=== PATIENT | male | born 1965 | race Caucasian/White ===

== ENCOUNTER 2022-06-11 16:41 | Inpatient (IN) | payer OTHER ==
[~2022-06-11] VITALS: Ht 170.2 cm; Wt 71.7 kg
[2022-06-11] MEDS ORDERED: MAGN400O6 PO (18:15)
[2022-06-11] MEDS ORDERED: TELM40TA2 PO (18:15)
[2022-06-11] MEDS ORDERED: GABA600T12 PO (18:15)
[2022-06-11] MEDS ORDERED: OMEP20CA15 PO (18:15)
[2022-06-11] MEDS ORDERED: TRAZ-257 PO (18:15)
[2022-06-11] MEDS ORDERED: PROP10TA10 PO (18:15)
[2022-06-11] MEDS ORDERED: ACET650T7 PO (18:15)
[2022-06-11] MEDS ORDERED: FOLI0.4T6 PO (18:15)
[2022-06-11] MEDS ORDERED: PIPERACILLIN /TAZOBACTAM 3.375 G VIAL IV ONE (18:25)
[2022-06-11] MEDS ORDERED: VANCOMYCIN 1 GM VIAL ONE (18:25)
[2022-06-11] MEDS ORDERED: VANCOMYCIN 1 GM in IV D5W 250 ML IV ONE (18:30)
[2022-06-11] MEDS ORDERED: PIPERACILLIN /TAZOBACTAM 3.375 G in IV D5W 50 ML IV ONE (18:30)
[2022-06-11 19:17] LABS: ALBUMIN 3.1 g/dL (3.4-5.0); BILIRUBIN,DIRECT 0.1 mg/dL (0.0-0.2); BILIRUBIN,TOTAL 0.3 mg/dL (0.2-1.0); CALCIUM, SERUM 8.9 mg/dL (8.5-10.1); CREATININE 1.1 mg/dL (0.6-1.3); POTASSIUM 3.8 mmol/L (3.5-5.1); TOTAL PROTEIN, SERUM 7.5 g/dL (6.4-8.2)
--- NOTE | 2022-06-11 19:22 | NUR ---
IKER, FROM FACILITY SN[facility] FOR AN EVAL OF SACRAL ULCER , NOTED WITH EXCRETIIONS
--- NOTE | 2022-06-11 19:48 | NUR ---
DR ROGER SOFIA PER DR BERNAL.
[2022-06-11 19:54] LABS: BASOPHILS % (AUTO) 0.1 % (0.0-2.0); EOSINOPHILS % (AUTO) 1.6 % (0.0-6.0); HEMATOCRIT 32 % (39-51); HEMOGLOBIN 10.5 g/dL (13.5-17.5); LYMPHOCYTES # (AUTO) 1.3 K/uL (0.8-4.8); LYMPHOCYTES % (AUTO) 14.9 % (20.0-44.0); MEAN CORPUSCULAR HGB CONC 33 g/dl (31.0-36.0); MEAN CORPUSCULAR VOLUME 84 fL (80-96); MONOCYTES # (AUTO) 0.8 K/uL (0.1-1.30); MONOCYTES % (AUTO) 8.8 % (2.0-12.0); NEUTROPHILS # (AUTO) 6.4 K/uL (1.8-8.9); NEUTROPHILS % (AUTO) 74.6 % (43.0-81.0); PLATELET COUNT (AUTO) 308 K/uL (150-450); RED BLOOD CELL COUNT(AUTO) 3.79 MIL/uL (4.5-6.0); WHITE BLOOD COUNT (AUTO) 8.6 K/uL (4.3-11.0)
[2022-06-11 20:03] LABS: BILIRUBIN,URINE NEGATIVE (NEGATIVE); COLOR,URINE YELLOW (YELLOW); LEUKOCYTE ESTERASE ,URINE NEGATIVE (NEGATIVE); NITRITE, URINE NEGATIVE (NEGATIVE); PROTEIN,URINE NEGATIVE (NEGATIVE); UGLUCOSE NEGATIVE (NEGATIVE); UROBILINOGEN,URINE 0.2 EU/dL (0.2)
--- NOTE | 2022-06-11 21:54 | NUR ---
REPORT GIVEN TO TRACY MAXWELL
[2022-06-11] MEDS ORDERED: MORPHINE SULFATE INJ 2 MG/ML DISP.SYRIN IV PRN (22:00)
[2022-06-11] MEDS ORDERED: ACETAMINOPHEN 325 MG TABLET PO PRN (22:00)
[2022-06-11] MEDS ORDERED: ONDANSETRON HCL/PF 4 MG/2 ML VIAL IVP PRN (22:00)
[2022-06-11] MEDS ORDERED: Z GUARD REMEDY 4 OZ OINT TP PRN (22:00)
--- NOTE | 2022-06-11 22:13 | NUR ---
PATIENT TRANSFERRED TO [facility]
--- NOTE | 2022-06-11 22:15 | NUR ---
MS MIRROR FINISHING MACHINE OPERATOR NOTE PATIENT CAME FROM ER IN [facility]. PT AWAKE, ALERT, NON VERBAL, AND BED BOUND. PT ABLE TO FOLLOW COMMANDS. RESPIRATION EVEN AND UNLABORED. NO S/S OF PAIN OR ACUTE DISTRESS NOTED AT THIS TIME. PT ADMITTED WITH DIAGNOSTIC OF ULCER AND CELLULITIS. HAS IV ACCESS TO RIGHT AC 20G, FLUSHES WELL, IV SITE INTACT, AND PATENT. SKIN ASSESSMENT DONE, PICTURES OF WOUND TAKEN, AND FILLED TO PT'S CHART. BELONGINGS LIST CHECKED, VS STABLE. SAFETY PRECAUTIONS IN PLACE: BED LOCKED, AND LOW POSITION, SIDE RAILS UP X 3, CALL LIGHT WITHIN REACH. WILL CONTINUE TO MONITOR PT.
[2022-06-11] MEDS ORDERED: CEFEPIME 1 GM VIAL ONE (22:41)
--- NOTE | 2022-06-11 22:45 | NUR ---
MS RN NOTE SPOKE WITH MICROFILM EQUIPMENT INSPECTOR ELIO MCCANN. SINCE PATIENT IS NON-VERBAL, HOLD OFF ON PO MEDS UNTIL AM AND ORDER SWALLOW EVAL FOR AM WELL; ORDERS RECEIVED AND CARRIED OUT
[2022-06-11] MEDS ORDERED: CEFEPIME 1 GM in IV D5W 50 ML IV ONE (23:00)
[2022-06-11] MEDS: IV NS 0.9% 1,000 ML IV SCH (23:19)
--- NOTE | 2022-06-12 01:47 | NUR ---
MS RN NOTE SPOKE WITH [facility] FOR MORE INFORMATION REGARDING PATIENT, PATIENT IS NON-VERBAL AND UNABLE TO ANSWER QUESTIONNAIRE; PER EMPLOYEE CALL IN AM TO ANSWER MRI QUESTIONNAIRE AM SHIFT IS MORE FAMILIAR WITH THE PATIENT. CHARGE NURSE MADE AWARE; WILL INFORM DAY SHIFT
[2022-06-12] MEDS: PROPRANOLOL HCL 10 MG TABLET PO SCH ×3 (04:43→22:02)
[2022-06-12 06:32] LABS: BASOPHILS % (AUTO) 0.1 % (0.0-2.0); HEMATOCRIT 30 % (39-51); HEMOGLOBIN 9.9 g/dL (13.5-17.5); LYMPHOCYTES # (AUTO) 0.9 K/uL (0.8-4.8); LYMPHOCYTES % (AUTO) 14.2 % (20.0-44.0); MEAN CORPUSCULAR HGB CONC 34 g/dl (31.0-36.0); MEAN CORPUSCULAR VOLUME 84 fL (80-96); MONOCYTES # (AUTO) 0.6 K/uL (0.1-1.30); MONOCYTES % (AUTO) 8.4 % (2.0-12.0); NEUTROPHILS # (AUTO) 4.9 K/uL (1.8-8.9); NEUTROPHILS % (AUTO) 75.3 % (43.0-81.0); PLATELET COUNT (AUTO) 274 K/uL (150-450); RED BLOOD CELL COUNT(AUTO) 3.52 MIL/uL (4.5-6.0); WHITE BLOOD COUNT (AUTO) 6.5 K/uL (4.3-11.0)
[2022-06-12 06:57] LABS: ALBUMIN 2.8 g/dL (3.4-5.0); BILIRUBIN,TOTAL 0.4 mg/dL (0.2-1.0); CALCIUM, SERUM 8.9 mg/dL (8.5-10.1); MAGNESIUM 1.8 mg/dL (1.8-2.4); PHOSPHORUS 3.3 mg/dL (2.5-4.9); POTASSIUM 3.7 mmol/L (3.5-5.1); TOTAL PROTEIN, SERUM 6.9 g/dL (6.4-8.2)
--- NOTE | 2022-06-12 07:02 | NUR ---
MS RN CLOSING NOTE PATIENT LEFT RESTING IN BED. PT AWAKE, ALERT, NON VERBAL, AND BED BOUND. PT ABLE TO FOLLOW COMMANDS. RESPIRATION EVEN AND UNLABORED. NO S/S OF PAIN OR ACUTE DISTRESS NOTED AT THIS TIME. HAS IV ACCESS TO RIGHT AC 20G, FLUSHES WELL, IV SITE INTACT, AND PATENT. ALL NEEDS RENDERED. SAFETY PRECAUTIONS IN PLACE: BED LOCKED, AND LOW POSITION, SIDE RAILS UP X 3, CALL LIGHT WITHIN REACH. WILL ENDORSE PT TO AM SHIFT NURSE.
--- NOTE | 2022-06-12 07:45 | NUR ---
MS RN OPENING NOTE RECEIVED PATIENT LYING IN BED CALM. AOX1, NON-VERBAL, UNABLE TO MAKE KNEEDSS KNOWN, PATIENT IS BEDBOUND. ON ROOM AIR SATURATING WELL AT 98%. RESPIRATION EVEN AND UNLABORED. NO S/S OF PAIN OR ACUTE DISTRESS NOTED AT THIS TIME. HAS IV ACCESS TO RIGHT AC 18G, FLUSHES WELL, IV SITE INTACT, AND PATENT RUNNING 75 ML/HR OF NS. SAFETY PRECAUTIONS IN PLACE: BED LOCKED, BED LOWEST POSITION, SIDE RAILS UP X 3, CALL LIGHT AND TRAY TABLE WITHIN REACH. WILL MONITOR DURING MY SHIFT.
[2022-06-12 08:00] VITALS: BP 121/66
[2022-06-12] MEDS: FOLIC ACID 1 MG TABLET PO SCH (09:53)
[2022-06-12] MEDS: GABAPENTIN 300 MG CAPSULE PO SCH ×3 (09:53→17:12)
[2022-06-12] MEDS: LOSARTAN POTASSIUM 50 MG TABLET PO SCH (09:56)
[2022-06-12] MEDS: VANCOMYCIN 1 GM in IV D5W 250 ML IV SCH ×2 (10:00→21:55)
[2022-06-12] MEDS: PANTOPRAZOLE 40 MG TABLET.DR PO SCH (10:02)
[2022-06-12] MEDS: CEFEPIME 2 GM in IV D5W 100 ML IV SCH ×2 (10:08→21:22)
--- NOTE | 2022-06-12 10:30 | NUR ---
RN NOTES CALLED [facility] AND SPOKE TO FRANCINE DRAMATIC TEACHER REGARDING PT'S HISTORY. SHE CLAIMS THAT THE PATIENT HAS BEEN IN THE FACILITY SINCE FEBRUARY OF 2021 AND THEY DONT HAVE ANY HISTORY OF SURGERY, HEAD INJURY, MRI PROCEDURES THE PATIENT WAS HOMELESS. WILL ENDORSE TO MRI TEAM.
--- NOTE | 2022-06-12 10:53 | NUR ---
WOUND CARE CONSULT: PT PRESENTS WITH SACRAL INTACT DEEP TISSUE INJURY WITH SCARRING AND PURULENT DRAINAGE FROM SCROTUM, PRESENT ON ADMISSION. DISCUSSED WITH PMD. DEFER TO PMD FOR POSSIBLE GENERAL SURGERY CONSULT. RECOMMENDATIONS MADE FOR SKIN PROTECTION. DISCUSSED WITH NURSING STAFF. MD IN AGREEMENT WITH PLAN OF CARE.
--- NOTE | 2022-06-12 10:55 | NUR ---
RN NOTES PATIENT WAS SEEN BY SPEECH THERAPIST AND DEEMED THAT THE PATIENT CAN SWALLOW, ORAL MEDS RESUMED AND DIET WAS CHANGED TO MECHANICAL SOFT. ADVISED SUMMER ASSOCIATE TO FEED THE PATIENT.
--- NOTE | 2022-06-12 11:09 | NUR ---
RN NOTES PATIENT WAS SEEN BY WOUND NURSE JERALD, NOTED TO HAVE ABSCESS IN THE SCROTAL AREA AND DTI ON THE SACRAL AREA WITHOUT ANY OPEN WOUNDS. PATIENT WAS ALSO SEEN BY DR EMMANUEL DOMINGUEZ WELL. ORDERED 1 MG ATIVAN IV ONE TIME FOR MRI PROCEDURE.
--- NOTE | 2022-06-12 11:19 | NUR ---
RN NOTES CALLED THE [facility] TO CONFIRM REACTION TO MORPHINE, MENTIONED THEY DIDNT USE IT AND WAS ONLY GIVEN TYLENOL FOR PAIN. ENDORSED TO THE PHARMACIST, MENTIONED THEY WILL DC THE MEDICATION.
--- NOTE | 2022-06-12 12:10 | NUR ---
RN NOTES PATIENT PULLED 18G RIGHT AC IV, NO BLEEDING NOTED. WILL START A NEW ONE FOR IV ATB ORDERS.
[2022-06-12] MEDS: IV NS 0.9% 1,000 ML IV SCH (12:32)
[2022-06-12] MEDS: PROSOURCE / PROSTAT (PYXIS) 30 ML UDC GT SCH ×2 (13:44→17:12)
--- NOTE | 2022-06-12 15:54 | NUR ---
RN NOTES SPOKE TO MAGALY DIETZ REGARDING PATIENT, SHE WANTED TO VERIFY IF MD WILL SIGN OFF BECAUSE OF THE LACK OF CONCRETE HISTORY TAKING ASIDE FROM THE DRAFTER MARINE AT THE FACILITY HE WAS AT. REACHED OUT TO EMMANUEL DOMINGUEZ AND SHE MENTIONED THAT THIS HAS BEEN ORDERED AND SHE NEED NOT TO DO ANYTHING. CALLED J LUIS BACK AND BEEN INFORMED SHE SAID SHE WILL DO HER BEST TO DO IT TODAY SINCE THE MACHINE IS ACTING UP. SHE WILL ENDORSE IT TO [facility] NEXT MORNING IF NOT POSSIBLE TODAY.
[2022-06-12 16:00] VITALS: BP 125/79
--- NOTE | 2022-06-12 17:14 | NUR ---
RN NOTES DVT PUMP APPLIED AND WOUND TREATMENT PROVIDED.
--- NOTE | 2022-06-12 18:17 | NUR ---
RN NOTES PATIENT PULLED OUT HIS RAC IV ACCESS AGAIN. NO BLEEDING NOTED.
--- NOTE | 2022-06-12 18:52 | NUR ---
MS RN CLOSING NOTE PATIENT LYING IN BED, AOX1, NON-VERBAL, LOOKED CALM, UNABLE TO MAKE KNEEDS KNOWN, PATIENT IS ON ROOM AIR SATURATING WELL AT 98%. RESPIRATION EVEN AND UNLABORED. NO S/S OF PAIN OR ACUTE DISTRESS NOTED AT THIS TIME. AT 1816 PATIENT REMOVED HIS IV ACCESS TO RIGHT AC 20G LINE FOR THE 2ND TIME TODAY. CONSULTED CHARGE NURSE DIONE FOR POSSIBLE RESTRAINT BUT DO TO TIME CONSTRAINTS, TO ENDORSE TO THE ANCILLARY SPECIALIST. NO BLEEDING NOTED ON THE SITE. SAFETY PRECAUTIONS MAINTAINED: BED LOCKED, BED LOWEST POSITION, SIDE RAILS UP X 3, CALL LIGHT AND TRAY TABLE WITHIN REACH. ALL DUE MEDS GIVEN, ALL NEEDS MET. ENDORSED TO TRACY KHOURY.
--- NOTE | 2022-06-12 20:39 | NUR ---
NEW IV PERIPHERAL LINE Patient pulled out IV line per report by am Nurse. RFA G22 inserted in RFA x1 attempt. Cont IVF infusion.
[2022-06-12 20:44] VITALS: BP 111/66
[2022-06-12] MEDS: TRAZODONE 50 MG TABLET PO SCH (22:02)
[2022-06-13] MEDS: IV NS 0.9% 1,000 ML IV SCH ×2 (02:01→14:28)
[2022-06-13] MEDS: PROPRANOLOL HCL 10 MG TABLET PO SCH ×3 (05:00→21:00)
--- NOTE | 2022-06-13 05:38 | NUR ---
MEDICATION NON ADMINISTERED Inderal not given. Held per level ordered HR 52. Medication returned to pharmacy.
--- NOTE | 2022-06-13 07:07 | NUR ---
MS RN OPENING NOTES RECEIVED PATIENT AWAKE IN BED, RESTING ON ROOM AIR, NO S/S OF RESPIRATORY DISTRESS. NON VERBAL, RESPONDS TO VERBAL AND TACTILE STIMULI. IV ACCESS R FA #22 WITH NS @ 75 ML/HR RUNNING. INTACT AND PATENT, NO S/S OF INFILTRATION. SITTER AT BEDSIDE. INCONTINENT. SKIN ISSUES: SCROTAL ABSCESS AND SACRAL DTI. SAFETY MEASURES IN PLACE: BED LOCKED AND IN LOWEST POSITION, SIDE RAILS UP x3, BED ALARM ON, HOB ELEVATED, AND CALL LIGHT WITHIN REACH. WILL CONTINUE TO MONITOR.
[2022-06-13 07:15] LABS: BASOPHILS % (AUTO) 0.2 % (0.0-2.0); EOSINOPHILS % (AUTO) 2.8 % (0.0-6.0); HEMATOCRIT 31 % (39-51); HEMOGLOBIN 10.1 g/dL (13.5-17.5); LYMPHOCYTES # (AUTO) 1.3 K/uL (0.8-4.8); LYMPHOCYTES % (AUTO) 20.2 % (20.0-44.0); MEAN CORPUSCULAR HGB CONC 33 g/dl (31.0-36.0); MEAN CORPUSCULAR VOLUME 84 fL (80-96); MONOCYTES # (AUTO) 0.6 K/uL (0.1-1.30); MONOCYTES % (AUTO) 8.9 % (2.0-12.0); NEUTROPHILS # (AUTO) 4.2 K/uL (1.8-8.9); NEUTROPHILS % (AUTO) 67.9 % (43.0-81.0); PLATELET COUNT (AUTO) 298 K/uL (150-450); RED BLOOD CELL COUNT(AUTO) 3.62 MIL/uL (4.5-6.0); WHITE BLOOD COUNT (AUTO) 6.2 K/uL (4.3-11.0)
[2022-06-13 07:20] LABS: CALCIUM, SERUM 9.2 mg/dL (8.5-10.1); CREATININE 1.2 mg/dL (0.6-1.3); MAGNESIUM 1.9 mg/dL (1.8-2.4); PHOSPHORUS 3.9 mg/dL (2.5-4.9); POTASSIUM 3.9 mmol/L (3.5-5.1)
--- NOTE | 2022-06-13 07:33 | NUR ---
END OF SHIFT REPORT Patient in bed, awake, non verbal. No acute distress during the shift, on room air. IVF infusing, on IV abx. Afebrile throughout. Turned and repositioned, offload extremities. Plan for MRI L spine today. Fall precaution maintained. Care endorsed to TRACY Martinez.
[2022-06-13] MEDS: PANTOPRAZOLE 40 MG TABLET.DR PO SCH (07:57)
[2022-06-13] MEDS: VANCOMYCIN 1 GM in IV D5W 250 ML IV SCH ×2 (07:58→21:10)
[2022-06-13 08:00] VITALS: BP 118/70
[2022-06-13] MEDS ORDERED: LORAZEPAM INJ 2 MG/ML VIAL IVP ONE (09:00)
[2022-06-13] MEDS: PROSOURCE / PROSTAT (PYXIS) 30 ML UDC GT SCH ×3 (09:17→16:22)
[2022-06-13] MEDS: FOLIC ACID 1 MG TABLET PO SCH (09:17)
[2022-06-13] MEDS: LOSARTAN POTASSIUM 50 MG TABLET PO SCH (09:18)
[2022-06-13] MEDS: GABAPENTIN 300 MG CAPSULE PO SCH ×3 (09:18→16:21)
[2022-06-13] MEDS: CEFEPIME 2 GM in IV D5W 100 ML IV SCH ×2 (09:19→22:22)
[2022-06-13 16:00] VITALS: BP 133/79
--- NOTE | 2022-06-13 18:36 | NUR ---
MS RN CLOSING NOTES PATIENT AWAKE IN BED, RESTING STABLE ON ROOM AIR, NO S/S OF RESPIRATORY DISTRESS. NON VERBAL, RESPONDS TO VERBAL AND TACTILE STIMULI. IV ACCESS R FA #22 WITH NS @ 75 ML/HR RUNNING. INTACT AND PATENT, NO S/S OF INFILTRATION. SITTER AT BEDSIDE. INCONTINENT. SKIN ISSUES: SACRAL DTI. ALL PRESCRIBED MEDICATION ADMINISTERED. SAFETY MEASURES MAINTAINED: BED LOCKED AND IN LOWEST POSITION, SIDE RAILS UP x3, BED ALARM ON, HOB ELEVATED, AND CALL LIGHT WITHIN REACH. WILL ENDORSE TO NEXT SHIFT ANY JONATHAN.
[2022-06-13 20:30] VITALS: BP 112/59
[2022-06-13] MEDS: TRAZODONE 50 MG TABLET PO SCH (21:21)
--- NOTE | 2022-06-13 21:25 | NUR ---
MEDICATION NON ADMINISTERED Propanol not given. Held per level ordered HR 54. Medication returned to pharmacy.
[2022-06-14] MEDS: PROPRANOLOL HCL 10 MG TABLET PO SCH ×2 (05:00→12:17)
--- NOTE | 2022-06-14 05:52 | NUR ---
MEDICATION NON ADMINISTERED Propanol not given. Held per level ordered Pulse 45.
[2022-06-14 06:27] LABS: BASOPHILS % (AUTO) 0.1 % (0.0-2.0); EOSINOPHILS % (AUTO) 3.4 % (0.0-6.0); HEMATOCRIT 32 % (39-51); HEMOGLOBIN 10.6 g/dL (13.5-17.5); LYMPHOCYTES % (AUTO) 15.4 % (20.0-44.0); MEAN CORPUSCULAR HGB CONC 33 g/dl (31.0-36.0); MEAN CORPUSCULAR VOLUME 84 fL (80-96); MONOCYTES # (AUTO) 0.4 K/uL (0.1-1.30); MONOCYTES % (AUTO) 6.5 % (2.0-12.0); NEUTROPHILS # (AUTO) 4.6 K/uL (1.8-8.9); NEUTROPHILS % (AUTO) 74.6 % (43.0-81.0); PLATELET COUNT (AUTO) 286 K/uL (150-450); RED BLOOD CELL COUNT(AUTO) 3.84 MIL/uL (4.5-6.0); WHITE BLOOD COUNT (AUTO) 6.2 K/uL (4.3-11.0)
--- NOTE | 2022-06-14 06:27 | NUR ---
END OF SHIFT REPORT Patient in bed, awake, non verbal. No acute distress during the shift, stable on room air. On IV abx. Afebrile throughout shift. Incontinent care done. Possible Perianal wound, Skin photo placed in the chart. Wound consult. MRI Lumbar spine pending result. Episode of pulling IV lines, patient confused, not follow commands. Sitter at bedside. Fall precaution maintained. Will endorse to oncoming RN.
--- NOTE | 2022-06-14 07:06 | NUR ---
PULLED OUT IV PERIPHERAL LINE Patient pulled out IV line, per RN ADVICE, movement sudden. Attempted reinsertion with another RN, unsuccessful. Will endorse to oncoming RN.
[2022-06-14 07:08] LABS: CALCIUM, SERUM 9.1 mg/dL (8.5-10.1); CREATININE 1.1 mg/dL (0.6-1.3); MAGNESIUM 1.7 mg/dL (1.8-2.4); POTASSIUM 3.9 mmol/L (3.5-5.1)
--- NOTE | 2022-06-14 07:08 | NUR ---
MS RN OPENING NOTES RECEIVED PATIENT AWAKE IN BED, RESTING ON ROOM AIR, NO S/S OF RESPIRATORY DISTRESS. NON VERBAL, RESPONDS TO VERBAL AND TACTILE STIMULI. IV ACCESS WAS PULLED OUT JUST BEFORE REPORT BEING GIVEN. SITTER AT BEDSIDE. INCONTINENT. SKIN ISSUES: SACRAL DTI. SAFETY MEASURES IN PLACE: BED LOCKED AND IN LOWEST POSITION, SIDE RAILS UP x3, BED ALARM ON, HOB ELEVATED, AND CALL LIGHT WITHIN REACH. WILL CONTINUE TO MONITOR.
[2022-06-14 08:00] VITALS: BP 138/72
[2022-06-14] MEDS: PANTOPRAZOLE 40 MG TABLET.DR PO SCH (08:22)
[2022-06-14] MEDS: VANCOMYCIN 1 GM in IV D5W 250 ML IV SCH (08:25)
[2022-06-14] MEDS: GABAPENTIN 300 MG CAPSULE PO SCH ×2 (08:26→12:16)
[2022-06-14] MEDS: FOLIC ACID 1 MG TABLET PO SCH (08:26)
[2022-06-14] MEDS: PROSOURCE / PROSTAT (PYXIS) 30 ML UDC GT SCH ×2 (08:27→12:16)
[2022-06-14] MEDS: LOSARTAN POTASSIUM 50 MG TABLET PO SCH (08:37)
--- NOTE | 2022-06-14 09:13 | NUR ---
WOUND CARE CONSULT/FOLLOW UP: RECEIVED CONSULT FOR PERIANAL AREA. PT NOTED TO HAVE SCANT TILLMAN/PINK DRAINAGE AT PERIANAL AREA . PT IS INCONTINENT. THERE IS SMALL OPENING AT RIDE SIDE OF SCROTUM WITH SCANT PURULENT DRAINAGE, NOTED TO BE PRESENT ON ADMISSION. PT CONTINUES TO HAVE INTACT DEEP TISSUE INJURY TO SACRUM WITH SCARRING, ALSO PRESENT ON ADMISSION. DR RODRIGUEZ CALLED FOR SURGICAL CONSULT. RECOMMENDATIONS MADE FOR SKIN PROTECTION INCLUDING CONDOM CATH. DISCUSSED WITH NURSING STAFF. MD IN AGREEMENT WITH PLAN OF CARE.
[2022-06-14] MEDS: CEFEPIME 2 GM in IV D5W 100 ML IV SCH (10:12)
[2022-06-14 12:17] VITALS: BP 124/70
[2022-06-14] MEDS ORDERED: Magnesium 1GM/D5W 100ML PREMIX 100 ML IV SCH (14:00)
[2022-06-14] MEDS ORDERED: MAGNESIUM OXIDE 400 MG TABLET PO ONE (14:00)
[2022-06-14] MEDS ORDERED: DOXY100C2 PO (16:26)
--- NOTE | 2022-06-14 17:27 | NUR ---
RESISTANCE MACHINE WELDER SETTER NOTES PATIENT D/C BACK TO [facility]ISTED [facility]IVING, PATIENT IS INCONTINENT, NON-VERBAL, RESPONDS TO TACTILE AND VERBAL STIMULI. PATIENT IV ACCESS REMOVED, PRESSURE DRESSING APPLIED, ID BAND REMOVED. PHOTOS OF SKIN ISSUES: SCROTUM AND SACRAL TAKEN AND FILED INTO CHART. REPORT GIVEN TO VADIM ABOUT PATIENT STATUS. PATIENT UNABLE TO SIGN, TWO SIGNATURES OBTAINED. STABLE ON ROOM AIR, NO S/S OF PAIN OR DISCOMFORT NOTED. PATIENT LEFT UNIT @1720 ACCOMPANIED BY TWO distance learning coordinator. CHARGE NURSE AND MD AWARE OF DISCHARGE.
== END 2022-06-14 17:34 | DRG 380 ==
LOC: ER 16:55 → MED 21:49
PROVIDERS: ADMIT Internal Medicine; ATTEND Registered Nurse
DX: L89.159 Pressure ulcer of sacral region, unspecified stage (principal); E44.1 Mild protein-calorie malnutrition; F03.90 Unspecified dementia, unspecified severity, without behavioral disturbance, psychotic disturbance, mood disturbance, and anxiety; E51.2 Wernicke's encephalopathy; E88.09 Other disorders of plasma-protein metabolism, not elsewhere classified; N49.2 Inflammatory disorders of scrotum; L03.818 Cellulitis of other sites; Z79.899 Other long term (current) drug therapy; Z74.01 Bed confinement status; Z20.822 Contact with and (suspected) exposure to COVID-19; Z86.19 Personal history of other infectious and parasitic diseases; Y90.9 Presence of alcohol in blood, level not specified; F10.10 Alcohol abuse, uncomplicated; F15.11 Other stimulant abuse, in remission; R26.9 Unspecified abnormalities of gait and mobility; Z88.5 Allergy status to narcotic agent; I10 Essential (primary) hypertension; D64.9 Anemia, unspecified
CPT/HCPCS: 36415; 71045-TC; 72148-TC; 76870-TC; 80048-TC; 80053-TC; 80076-TC; 80202-TC; 83605-TC; 83735-TC; 84100-TC; 85025-TC; 85652-TC; 85730-TC; 86140-TC; 87040-TC; 87081-TC; 87086-TC; 92526; 92611-TC; A4349; A6403; C9803; G0378; J0692; J2060; J2543; J3370; J7030; J7042; J7060

== ENCOUNTER 2022-08-28 13:23 | Inpatient (IN) | payer OTHER ==
[~2022-08-28] VITALS: Ht 170.2 cm; Wt 62.1 kg
[~2022-08-28 13:23] MED LIST: ACET650T7 PO; DOXY100C2 PO; FOLI0.4T6 PO; GABA600T12 PO; MAGN400O6 PO; OMEP20CA15 PO; PROP10TA10 PO; TELM40TA2 PO; TRAZ-257 PO
--- NOTE | 2022-08-28 13:38 | NUR ---
DR AAPRICIO AT BEDSIDE
[2022-08-28] MEDS ORDERED: IV NS 0.9% 500 ML IV ONE (14:00)
[2022-08-28 14:49] LABS: ABG BASE EXCESS 2.1 mmol/L; ABG PCO2 44.3 mmHg (35.0-45.0); ABG PH 7.406 (7.350-7.450); ABG PO2 99.4 mmHg (75.0-100.0); COHb 0.4 % (0.5-1.5); MetHb 0.1 % (0.0-1.5); O2Hb 96.8 % (94.0-97.0); SITE, ABG Right Radial; VENT MODE, BG NC 3 LPM
[2022-08-28 15:00] LABS: BASOPHILS % (AUTO) 0.2 % (0.0-2.0); EOSINOPHILS % (AUTO) 0.6 % (0.0-6.0); HEMATOCRIT 38 % (39-51); HEMOGLOBIN 12.5 g/dL (13.5-17.5); LYMPHOCYTES # (AUTO) 1.3 K/uL (0.8-4.8); LYMPHOCYTES % (AUTO) 14.2 % (20.0-44.0); MEAN CORPUSCULAR HGB CONC 33 g/dl (31.0-36.0); MEAN CORPUSCULAR VOLUME 87 fL (80-96); MONOCYTES # (AUTO) 0.6 K/uL (0.1-1.30); MONOCYTES % (AUTO) 6.2 % (2.0-12.0); NEUTROPHILS # (AUTO) 7.4 K/uL (1.8-8.9); NEUTROPHILS % (AUTO) 78.8 % (43.0-81.0); PLATELET COUNT (AUTO) 371 K/uL (150-450); RED BLOOD CELL COUNT(AUTO) 4.44 MIL/uL (4.5-6.0); WHITE BLOOD COUNT (AUTO) 9.3 K/uL (4.3-11.0)
[2022-08-28 15:29] LABS: ALBUMIN 3.5 g/dL (3.4-5.0); ASPARTATE AMINOTRANSFERASE 12 U/L (15-37); BILIRUBIN,DIRECT 0.1 mg/dL (0.0-0.2); CALCIUM, SERUM 9.1 mg/dL (8.5-10.1); CARBON DIOXIDE 33 mmol/L (21-32); CHLORIDE 101 mmol/L (98-107); CREATININE 0.9 mg/dL (0.6-1.3); GLUCOSE 99 mg/dL (74-106); POTASSIUM 3.5 mmol/L (3.5-5.1); SODIUM SERUM 136 mmol/L (136-145); UREA NITROGEN, BLOOD 18 mg/dL (7-18)
--- NOTE | 2022-08-28 15:42 | NUR ---
PATIENT WITH TREMORS, WILL NOT BE ABLE TO STAY STILL DURING CT SCAN, MADE MD AWARE. RECEIVED VERBAL ORDER OF 0.5 MG [address] IVP FROM DR APARICIO. CARRIED OUT
[2022-08-28] MEDS ORDERED: LORAZEPAM INJ 2 MG/ML VIAL ONE (15:44)
[2022-08-28] MEDS ORDERED: RISP0.2515 PO (15:46)
[2022-08-28 15:53] LABS: ALANINE AMINOTRANSFERASE 14 U/L (12-78); ALKALINE PHOSPHATASE 107 U/L (46-116); BILIRUBIN,TOTAL 0.4 mg/dL (0.2-1.0); TOTAL PROTEIN, SERUM 7.7 g/dL (6.4-8.2)
[2022-08-28] MEDS ORDERED: LORAZEPAM INJ 2 MG/ML VIAL IV ONE (16:00)
[2022-08-28] MEDS ORDERED: IV NS 0.9% 250 ML IV ONE (16:02)
[2022-08-28] MEDS ORDERED: CT SWABBABLE VALVE TRANS SET 1 EA INFUS.SET MC ONE (16:02)
[2022-08-28] MEDS ORDERED: IOHEXOL-350 100 ML VIAL IV ONE (16:02)
--- NOTE | 2022-08-28 16:15 | NUR ---
PATIENT WHEELED OUT VIA GURNEY FOR CT SCAN
--- NOTE | 2022-08-28 16:27 | NUR ---
LAC 20G IVP INFILTRATED, STARTED NEW IVP AT RAC 18G.
--- NOTE | 2022-08-28 17:07 | NUR ---
MOVE SHEET SUBMITTED
--- NOTE | 2022-08-28 17:09 | NUR ---
RAPID COVID SWAB DONE AND SENT TO LAB
[2022-08-28] MEDS ORDERED: ACETAMINOPHEN 325 MG TABLET PO PRN (18:30)
[2022-08-28] MEDS ORDERED: MAG HYDROX/AL HYDROX/SIMETH 30 ML UDC PO PRN (18:30)
[2022-08-28] MEDS ORDERED: Z GUARD REMEDY 4 OZ OINT TP PRN (18:30)
[2022-08-28] MEDS ORDERED: DEXAMETHASONE SOD PHOSPHATE 6 MG in IV D5W 50 ML IV SCH (18:30)
[2022-08-28] MEDS ORDERED: MAGNESIUM HYDROXIDE 30 ML UDC PO PRN (18:30)
[2022-08-28] MEDS ORDERED: ONDANSETRON HCL/PF 4 MG/2 ML VIAL IVP PRN (18:30)
[2022-08-28] MEDS ORDERED: MORPHINE SULFATE INJ 2 MG/ML DISP.SYRIN IV PRN (18:30)
[2022-08-28] MEDS ORDERED: ALBUTEROL FS 2.5 MG/0.5 ML VIAL.NEB NEB PRN (18:30)
--- NOTE | 2022-08-28 20:35 | NUR ---
REPORT GIVEN TO TRACY QUIÑONES
--- NOTE | 2022-08-28 20:48 | NUR ---
PT TRANSFERRING TO [facility] VIA ACLS PROTOCOL. VSS. ALL BELONGINGS WITH PT.
--- NOTE | 2022-08-28 20:55 | NUR ---
RN OPENING NOTE RECEIVED PT VIA GURDAVID FROM ED. TELE MONITORING READING SINUS SERJIO 43.IV ACCESS ON RAC #20G. PT IS NON VERBAL BUT CAN FOLLOW SOME COMMANDS.SKIN IS INTACT WITH REDNESS ON SACRUM, BOTH HEELS, BOTH KNEES, AND SCROTUM PICTURES DOCUMENTED IN THE CHART. ALL SAFETY MEASURES IN PLACE: BED LOCKED AND IN LOWEST POSITION, CALL LIGHT WITHIN REACH, SIDE RAILS UP, BED ALARM ON.WILL CONTINUE TO MONITOR FOR JONATHAN.
[2022-08-28 21:00] VITALS: BP 145/68
[2022-08-28] MEDS ORDERED: PROPRANOLOL HCL 10 MG TABLET PO SCH (21:00)
[2022-08-28] MEDS: DEXAMETHASONE SOD PHOSPHATE 4 MG/ML VIAL IV SCH (22:15)
[2022-08-28] MEDS: HEPARIN SODIUM, PORCINE 5000 UNITS/1 ML VIAL SQ SCH (22:16)
[2022-08-28] MEDS ORDERED: CEFEPIME 1 GM VIAL ONE (22:39)
[2022-08-28] MEDS: CEFEPIME 2 GM in IV D5W 100 ML IV SCH (23:47)
[2022-08-29] VITALS: BP 109/69
[2022-08-29] MEDS ORDERED: IPRATROPIUM/ALBUTEROL INHALER IH SCH
--- NOTE | 2022-08-29 00:03 | NUR ---
TRACY NOTE PT HR DROPS DOWN TO 36 WHILE SLEEPING. BOLUS OF 500ML WAS ORDERED. Addendum: 08/29/22 at 0658 by SEAN LOREDO RN KYLER PRAKASH ORDERED BOLUS
--- NOTE | 2022-08-29 00:53 | NUR ---
RN NOTE HEAD OF OPERATION AND LOGISTICS BRIAN NOTIFIED INDERAL WAS GIVEN.
[2022-08-29] MEDS ORDERED: DOPamine 400 MG/D5W 250 ML RTU BAG IV PRN (01:00)
[2022-08-29 01:24] LABS: ABG BASE EXCESS 0.8 mmol/L; ABG OXYGEN SATURATION 95.9 % (92.0-98.5); ABG PCO2 44.6 mmHg (35.0-45.0); ABG PH 7.386 (7.350-7.450); ABG PO2 87.9 mmHg (75.0-100.0); AaDO2 88.1 mmHg; COHb 0.4 % (0.5-1.5); MetHb 0.3 % (0.0-1.5); O2Hb 95.2 % (94.0-97.0); SITE, ABG Left Radial; VENT MODE, BG 3L NASAL CANNULA
[2022-08-29] MEDS ORDERED: DOPamine 400MG/D5W 250ML RTU 250 ML ONE (01:41)
[2022-08-29] MEDS: DOPamine 400MG/D5W 250ML RTU 250 ML IV PRN ×2 (01:44→21:45)
--- NOTE | 2022-08-29 01:44 | NUR ---
RN NOTE DOPAMINE STARTED FOR BRADYCARDIA HR GOES DOWN TO 36 WHILE PATIENT SLEEPING, AFTER BOLUS OF 500ML DID NOT INCREASE HR. . Addendum: 08/29/22 at 0659 by SEAN LOREDO RN PER KYLER TORRES VERBAL ORDER
--- NOTE | 2022-08-29 01:57 | NUR ---
RN NOTE CALLED [facility] AT # [phone]. SPOKE TO PARK. NO POLST ON FILE
[2022-08-29 04:00] VITALS: BP 133/77
--- NOTE | 2022-08-29 06:59 | NUR ---
COMMUNICATIONS ENGINEER CLOSING NOTES PT AWAKE IN BED, NON VERBAL NO DISTRESS NOTED. HR 56 ON DOPAMINE DRIP 5MCG/KG/MIN. ALL SIGNIFICANT CHANGES THROUGHOUT SHIFT NOTED. WILL ENDORSE TO MORNING SHIFT NURSE FOR CONTINUITY OF CARE .
--- NOTE | 2022-08-29 07:00 | NUR ---
RN NOTE RECEIVED PT ON BED, TELE MONITORING READING SB, HR IN 40'S , PT ON DOLAMIN DRIP AT 5 MCG/KG/MIN, ACCESS ON RAC #20G. PT IS NON VERBAL BUT CAN FOLLOW SOME COMMAND, ALL SAFETY MEASURES IN PLACE: BED LOCKED AND IN LOWEST POSITION, CALL LIGHT WITHIN REACH, SIDE RAILS UP, BED ALARM ON.WILL CONTINUE TO MONITOR .
[2022-08-29 08:00] VITALS: BP 134/78
[2022-08-29] MEDS: DEXAMETHASONE SOD PHOSPHATE 4 MG/ML VIAL IV SCH (08:35)
[2022-08-29] MEDS: GABAPENTIN 300 MG CAPSULE PO SCH ×3 (08:35→16:21)
[2022-08-29] MEDS: risperiDONE 0.25 MG TABLET PO SCH ×2 (08:36→16:21)
[2022-08-29] MEDS: LOSARTAN POTASSIUM 50 MG TABLET PO SCH (08:36)
[2022-08-29] MEDS: PANTOPRAZOLE 40 MG TABLET.DR PO SCH (08:36)
[2022-08-29] MEDS: HEPARIN SODIUM, PORCINE 5000 UNITS/1 ML VIAL SQ SCH ×2 (08:38→20:20)
[2022-08-29] MEDS: CEFEPIME 2 GM in IV D5W 100 ML IV SCH ×2 (08:39→20:17)
[2022-08-29 11:57] LABS: THYROID STIMULATING HORMONE 0.389 uIU/mL (0.358-3.74)
[2022-08-29 12:00] VITALS: BP 112/64
[2022-08-29 16:00] VITALS: BP 123/67
--- NOTE | 2022-08-29 18:56 | NUR ---
RN NOTES NO SIGNIFICANT CHANGES NOTED ON THIS SHIFT, PT REMAINS ON DOPAMINE AT 5 MCG/KG/MIN PER DR MACHUCA ORDER . PT WILL BE SEEN IN AM BY DR. ZARAGOZA , HR IN 50'S, SR UP x3. CALL LIGHT WITHIN EASY REACH, WILL ENDORSE TO PERISHABLE FRUIT INSPECTOR NURSE FOR CONTINUITY OF CARE
--- NOTE | 2022-08-29 19:30 | NUR ---
[facility] RN OPENING NOTE RECEIVED PT IN BED, ASLEEP, ON TELE MONITOR READING SB, HR IN 50'S, 94% SPO2. NO S/SX OF ACUTE RESPI DISTRESS NOTED AT THIS TIME. NO SOB. NO PAIN. IV ACCESS ON RAC #20G. PATENT AND INTACT, ON DOPAMINE DRIP @ 5 MCG/KG/MIN, . ALL SAFETY MEASURES IN PLACE: BED LOCKED AND IN LOWEST POSITION, CALL LIGHT WITHIN REACH, SIDE RAILS UP, BED ALARM ON. WILL CONTINUE TO MONITOR .
[2022-08-29 20:00] VITALS: BP 105/64
[2022-08-30] VITALS: BP 119/66
[2022-08-30 04:00] VITALS: BP 120/69
--- NOTE | 2022-08-30 04:37 | NUR ---
RN NOTE PT IS NON VERBAL. DOES NOT RESPOND TO QUESTIONS OR FOLLOW COMMANDS.
--- NOTE | 2022-08-30 07:00 | NUR ---
RN NOTE RECEIVED PATIENT IN BED RESTING OPEN EYES NON VERBAL,CONFUSED,ON 2L OXYGEN VIA NASAL CANNULA O2:92% HR 43,IV SITE IS ON RIGHT AC INTACT PATIENT ON DOPAMINE DRIP 5MCG/KG/MIN,SAFETY MEASURE IMPLEMENT BED IN LOW POSITION AND LOCKED HEAD OF THE BED ELEVATED CONTINUE TO MONITOR.
[2022-08-30] MEDS: PANTOPRAZOLE 40 MG TABLET.DR PO SCH (07:54)
[2022-08-30 08:00] VITALS: BP 115/67
[2022-08-30] MEDS: risperiDONE 0.25 MG TABLET PO SCH ×2 (08:12→16:15)
[2022-08-30] MEDS: GABAPENTIN 300 MG CAPSULE PO SCH ×3 (08:12→16:14)
[2022-08-30] MEDS: CEFEPIME 2 GM in IV D5W 100 ML IV SCH ×2 (08:13→21:30)
[2022-08-30] MEDS: DEXAMETHASONE SOD PHOSPHATE 4 MG/ML VIAL IV SCH (08:13)
[2022-08-30] MEDS: HEPARIN SODIUM, PORCINE 5000 UNITS/1 ML VIAL SQ SCH ×2 (08:16→21:32)
[2022-08-30] MEDS: LOSARTAN POTASSIUM 50 MG TABLET PO SCH (08:56)
[2022-08-30 12:00] VITALS: BP 104/57
[2022-08-30 16:00] VITALS: BP 111/60
[2022-08-30] MEDS: DOPamine 400MG/D5W 250ML RTU 250 ML IV PRN (17:09)
--- NOTE | 2022-08-30 18:34 | NUR ---
RN NOTE PATIENT REMAINS CONFUSED NON VERBAL,ON 4L OXYGEN VIA NASAL CANNULA,O2:94% NO SOB NOT ACUTE [id number] NOTED,ON DOPAMINE DRIP 5MCG/KG/MIN ALL DUE MEDS GIVEN MD ORDERED KEPT CLEAN AND DRY ALL THE TIME,KEPT HEAD OF THE BED ELEVATED ALL THE TIME,ALL NEEDS MET ENDORSE NEXT COMING SHIFT FOR CONTINUATION OF CARE.
[2022-08-30] MEDS: ALBUTEROL FS 2.5 MG/0.5 ML VIAL.NEB NEB SCH (19:30)
[2022-08-30] MEDS: IPRATROPIUM NEB FS 0.5 MG/2.5 ML AMPUL.NEB NEB SCH (19:30)
--- NOTE | 2022-08-30 19:30 | NUR ---
RN NOTE PATIENT IN BED, ON SEMI PACKER'S, AO X 1, IN NO ACUTE DISTRESS, SATURATION AT 99% ON 2L VIA NC, SR ON THE MONITOR, HR IS 63. IV LINE AT RAC 20G AND LUIS MANUEL MIDLINE PATENT AND FLUSHING WELL, NO S/S OF INFECTION OR INFILTRATION WITH DOPAMINE DRIP AT 5 MCG/KG/MIN. SAFETY MEASURES IMPLEMENTED, BED IS LOCKED AND AT LOWEST POSITION, HOB ELEVATED, CALL LIGHT WITHIN REACH OF PATIENT. WILL CONTINUE TO MONITOR AND REASSESS.
[2022-08-30 20:00] VITALS: BP 92/56
[2022-08-31] VITALS: BP 124/61
[2022-08-31] MEDS: IPRATROPIUM NEB FS 0.5 MG/2.5 ML AMPUL.NEB NEB SCH ×5 (01:55→20:28)
[2022-08-31] MEDS: ALBUTEROL FS 2.5 MG/0.5 ML VIAL.NEB NEB SCH ×5 (01:55→20:28)
[2022-08-31 04:06] VITALS: BP 107/55
--- NOTE | 2022-08-31 07:20 | NUR ---
RN NOTE RECEIVED PATIENT IN BED RESTING ALERT ORIENTED X1,NONVERBAL,ON 2L OXYGEN VIA NASAL CANNULA O2:96% IV SITE IS ON RIGHT UPPER ARM MIDLINE AND RIGHT FOREARM INTACT PATENT ON DOPAMINE DRIP 5 MGC/KG/MIN,SAFETY MEASURE IMPLEMENT BED IN LOW POSITION AND LOCKED,HEAD OF THE BED ELEVATED,CONTINUE TO MONITOR AND REACCESS.
[2022-08-31] MEDS: PANTOPRAZOLE 40 MG TABLET.DR PO SCH (07:21)
[2022-08-31 08:00] VITALS: BP 100/56
[2022-08-31] MEDS: CEFEPIME 2 GM in IV D5W 100 ML IV SCH ×2 (08:07→21:51)
[2022-08-31] MEDS: risperiDONE 0.25 MG TABLET PO SCH ×2 (08:07→16:36)
[2022-08-31] MEDS: GABAPENTIN 300 MG CAPSULE PO SCH ×3 (08:08→16:36)
[2022-08-31] MEDS: DEXAMETHASONE SOD PHOSPHATE 4 MG/ML VIAL IV SCH (08:08)
[2022-08-31] MEDS: HEPARIN SODIUM, PORCINE 5000 UNITS/1 ML VIAL SQ SCH ×2 (08:09→21:53)
[2022-08-31] MEDS: LOSARTAN POTASSIUM 50 MG TABLET PO SCH (09:00)
--- NOTE | 2022-08-31 09:20 | NUR ---
RN NOTE DR ALEJANDRA BALLARD DISCONTINUED DOPAMINE DRIP CONTINUE TO MONITOR.
--- NOTE | 2022-08-31 09:50 | NUR ---
RN NOTE PATIENT PULLED HIS RIGHT FOREARM IV LINE CALLED DR CAN,HE ORDERED BILATERAL WRIST SOFT RESTRAIN FOR KEEP PATIENT SAFE,CONTINUE TO MONITOR.
--- NOTE | 2022-08-31 10:27 | NUR ---
WOUND CARE CONSULT: PT PRESENTS WITH SACRAL INTACT DEEP TISSUE INJURY WITH SCARRING,PRESENT ON ADMISSION. PT NOTED TO BE PULLING AT HIS SACRAL DRESSING AND NOTED TO BE RUBBING HIS HEELS ON THE BED. DRY SCAB NOTED TO RT HEEL WITHOUT ERYTHEMA OR DRAINAGE. RECOMMENDATIONS MADE FOR SKIN PROTECTION. DISCUSSED WITH NURSING STAFF. IN AGREEMENT WITH PLAN OF CARE. Addendum: 08/31/22 at 1029 by JERALD RUFFIN WNDNU Amended: Links added.
[2022-08-31] MEDS ORDERED: Z GUARD REMEDY 4 OZ OINT TP PRN (10:30)
[2022-08-31] MEDS: Z GUARD REMEDY 4 OZ OINT TP SCH (10:50)
[2022-08-31 12:00] VITALS: BP 96/62
[2022-08-31 16:00] VITALS: BP 96/59
--- NOTE | 2022-08-31 18:39 | NUR ---
RN NOTE PATIENT REMAINS ALERT ORIENTED X1 NON VERBAL ON 2L OXYGEN VIA NASAL CANNULA O2:96% NO SOB NOT ACUTE DISTRESS NOTED,ALL DUE MEDS GIVEN MD ORDERED,ON CONDOM CATH,KEPT CLEAN AND DRY ALL THE TIME,KEPT HEAD OF THE BED ELEVATED ALL THE TIME,BILATERAL SOFT WRIST RESTRAIN IN PLACE CHECKED EVERY 15 MINS FOR SKIN BREAKDOWN AND CIRCULATION ALL NEEDS MET ENDORSE NEXT COMING SHIFT FOR CONTINUATION OF CARE
--- NOTE | 2022-08-31 19:30 | NUR ---
RN NOTE PATIENT IN BED, ON SEMI PACKER'S, AO X 1, IN NO ACUTE DISTRESS, SATURATION AT 97% ON 2L VIA NC, SR ON THE MONITOR, HR IS 44. LUIS MANUEL MIDLINE PATENT AND FLUSHING WELL, NO S/S OF INFECTION OR INFILTRATION. B SOFT WRIST RESTRAINTS IN PLACE, SKIN AND CIRCULATION ARE WNL. SAFETY MEASURES IMPLEMENTED, BED IS LOCKED AND AT LOWEST POSITION, HOB ELEVATED, CALL LIGHT WITHIN REACH OF PATIENT. WILL CONTINUE TO MONITOR AND REASSESS.
[2022-08-31 20:00] VITALS: BP 103/62
[2022-09-01] VITALS: BP 108/69
[2022-09-01] MEDS: ALBUTEROL FS 2.5 MG/0.5 ML VIAL.NEB NEB SCH ×4 (01:51→20:11)
[2022-09-01] MEDS: IPRATROPIUM NEB FS 0.5 MG/2.5 ML AMPUL.NEB NEB SCH ×4 (01:51→20:11)
[2022-09-01 04:00] VITALS: BP 104/62
--- NOTE | 2022-09-01 07:25 | NUR ---
RN [facility]ILFRED OPENING NOTES: RECEIVED PATIENT IN BED ASLEEP BUT RESPONDS TO VOICE AND TACTILE STIMULI. PATIENT WAS VERY SLEEPY AND DID NOT OPEN HIS EYES BUT WAS ABLE TO SQUEEZE THE HANDS OF THE NURSE. ON SR WITH HR OF 84 ON TELE MONITOR. ON OXYGEN @ 2L/MIN VIA N/C WITH OXYGEN SATURATION OF 99%. IV ACCESS ON RIGHT UPPER ARM MIDLINE, INTACT, PATENT AND FLUSHES WELL, NO S/S INFILTRATION NOTED ON THE IV SITE. CONDOM CATHETER IS INTACT, DRAINING WITH YELLOW COLORED URINE, NO HEMATURIA AND NO SEDIMENTATION NOTED. ALL SAFETY MEASURES IN PLACE, BED LOCKED AND IN LOWEST POSITION. CALL LIGHT WITHIN REACH. WILL CONTINUE TO MONITOR PATIENT THROUGHOUT SIFT.
[2022-09-01] MEDS: PANTOPRAZOLE 40 MG/PACK PACK PO SCH (07:41)
[2022-09-01 08:00] VITALS: BP 106/62
[2022-09-01] MEDS: HEPARIN SODIUM, PORCINE 5000 UNITS/1 ML VIAL SQ SCH ×2 (08:27→21:28)
[2022-09-01] MEDS: DEXAMETHASONE SOD PHOSPHATE 4 MG/ML VIAL IV SCH (08:28)
[2022-09-01] MEDS: GABAPENTIN 300 MG CAPSULE PO SCH ×3 (08:28→17:04)
[2022-09-01] MEDS: CEFEPIME 2 GM in IV D5W 100 ML IV SCH (08:29)
[2022-09-01] MEDS: LOSARTAN POTASSIUM 50 MG TABLET PO SCH (08:30)
[2022-09-01] MEDS: Z GUARD REMEDY 4 OZ OINT TP SCH (08:31)
[2022-09-01] MEDS: risperiDONE 0.25 MG TABLET PO SCH ×2 (08:31→17:04)
[2022-09-01 12:00] VITALS: BP 105/65
[2022-09-01 16:00] VITALS: BP 88/52
--- NOTE | 2022-09-01 19:09 | NUR ---
RN [facility]IL[facility]ED CLOSING NOTES: PATIENT IN BED, AWAKE BUT IS NON VERBAL. NO RESPIRATORY DISTRESS NOTED. ON SR WITH HR OF 62. IV ACCESS ON RIGHT UPPER ARM MIDLINE INTACT, PATENT, FLUSHES WELL. NO S/S PAIN OR DISCOMFORT NOTED THROUGHOUT SHIFT. ALL NEEDS MET AND ANTICIPATED. ALL SAFETY MEAURES IN PLACE. WILL ENDORSE TO INCOMING NURSE FOR CONTINUITY OF CARE.
--- NOTE | 2022-09-01 19:20 | NUR ---
RN NOTE PATIENT IN BED, ON SEMI PACKER'S, AO X 1, IN NO ACUTE DISTRESS, SATURATION AT 98% ON 2L VIA NC, SR ON THE MONITOR, HR IS 70. LUIS MANUEL MIDLINE PATENT AND FLUSHING WELL, NO S/S OF INFECTION OR INFILTRATION. B SOFT WRIST RESTRAINTS IN PLACE, SKIN AND CIRCULATION ARE WNL. SAFETY MEASURES IMPLEMENTED, BED IS LOCKED AND AT LOWEST POSITION, HOB ELEVATED, CALL LIGHT WITHIN REACH OF PATIENT. WILL CONTINUE TO MONITOR AND REASSESS.
[2022-09-01 20:00] VITALS: BP 106/62
[2022-09-02] VITALS: BP 98/62
[2022-09-02] MEDS: ALBUTEROL FS 2.5 MG/0.5 ML VIAL.NEB NEB SCH ×4 (02:21→19:56)
[2022-09-02] MEDS: IPRATROPIUM NEB FS 0.5 MG/2.5 ML AMPUL.NEB NEB SCH ×4 (02:21→19:56)
[2022-09-02 04:00] VITALS: BP 108/61
--- NOTE | 2022-09-02 07:15 | NUR ---
RN NOTE PATIENT IN BED, ON SEMI PACKER'S, AO X 1, IN NO ACUTE DISTRESS, ON 2L VIA NC. LUIS MANUEL MIDLINE PATENT AND FLUSHING WELL, NO S/S OF INFECTION OR INFILTRATION. B SOFT WRIST RESTRAINTS IN PLACE, SKIN AND CIRCULATION ARE WNL. SAFETY MEASURES IMPLEMENTED, BED IS LOCKED AND AT LOWEST POSITION, HOB ELEVATED, CALL LIGHT WITHIN REACH OF PATIENT.
[2022-09-02 08:00] VITALS: BP 114/63
[2022-09-02] MEDS: Z GUARD REMEDY 4 OZ OINT TP SCH (09:03)
[2022-09-02] MEDS: GABAPENTIN 300 MG CAPSULE PO SCH ×3 (09:04→16:17)
[2022-09-02] MEDS: PANTOPRAZOLE 40 MG/PACK PACK PO SCH (09:04)
[2022-09-02] MEDS: risperiDONE 0.25 MG TABLET PO SCH ×2 (09:04→16:17)
[2022-09-02] MEDS: LOSARTAN POTASSIUM 50 MG TABLET PO SCH (09:05)
[2022-09-02] MEDS: HEPARIN SODIUM, PORCINE 5000 UNITS/1 ML VIAL SQ SCH ×2 (09:06→20:35)
[2022-09-02 12:00] VITALS: BP 102/64
[2022-09-02 16:00] VITALS: BP 105/65
--- NOTE | 2022-09-02 18:47 | NUR ---
RN CLOSING NOTES: PATIENT IN BED, AWAKE BUT IS NON VERBAL. NO RESPIRATORY DISTRESS NOTED. IV ACCESS ON RIGHT UPPER ARM MIDLINE INTACT, PATENT, FLUSHES WELL. NO S/S PAIN OR DISCOMFORT NOTED THROUGHOUT SHIFT. ALL NEEDS MET AND ANTICIPATED. ALL SAFETY MEAURES IN PLACE. WILL ENDORSE TO INCOMING NURSE FOR CONTINUITY OF CARE.
--- NOTE | 2022-09-02 19:35 | NUR ---
CHOKE REAMER OPENING NOTES: RECEIVED PATIENT IN BED AWAKE, A/O X1. ON SR WITH HR OF 80 ON TELE MONITOR. ON RA TOLERATING WELL SATING >95%. IV ACCESS ON RIGHT UPPER ARM MIDLINE, INTACT, PATENT AND FLUSHES WELL, NO S/S INFILTRATION NOTED ON THE IV SITE. NOTED WITH B SOFT WRIST RESTRAINTS, CONDOM CATHETER IN PLACED, INTACT, DRAINING WITH YELLOW COLORED URINE, NO HEMATURIA AND NO SEDIMENTATION NOTED. ALL SAFETY MEASURES IN PLACE, BED LOCKED AND IN LOWEST POSITION. CALL LIGHT WITHIN REACH. WILL CONTINUE TO MONITOR PATIENT THROUGHOUT SHIFT.
[2022-09-02 20:00] VITALS: BP 109/55
[2022-09-03] VITALS: BP 107/61
[2022-09-03] MEDS: IPRATROPIUM NEB FS 0.5 MG/2.5 ML AMPUL.NEB NEB SCH ×2 (01:14→08:51)
[2022-09-03] MEDS: ALBUTEROL FS 2.5 MG/0.5 ML VIAL.NEB NEB SCH ×2 (01:14→08:51)
[2022-09-03 04:00] VITALS: BP 117/75
--- NOTE | 2022-09-03 06:42 | NUR ---
HEALTH SERVICES COORDINATOR CLOSING NOTES: PATIENT IN BED AWAKE, A/O X1. ON RA TOLERATING WELL SATING >95%. SB ON THE TELE MONITOR. IV ACCESS ON RIGHT UPPER ARM MIDLINE, INTACT, PATENT AND FLUSHES WELL, NO S/S INFILTRATION NOTED ON THE IV SITE. NOTED WITH B SOFT WRIST RESTRAINTS, ALL DUE MEDS GIVEN, KEPT DRY AND CLEAN, CONDOM CATHETER IN PLACED, INTACT, DRAINING WITH YELLOW COLORED URINE, NO HEMATURIA AND NO SEDIMENTATION NOTED. ALL SAFETY MEASURES IN PLACE, BED LOCKED AND IN LOWEST POSITION. CALL LIGHT WITHIN REACH. WILL ENDORSE TO AM SHIFT NURSE FOR CONTINUITY OF CARE.
--- NOTE | 2022-09-03 07:20 | NUR ---
METAL CASTER OPENING NOTES: RECEIVED PATIENT IN BED ASLEEP BUT RESPONDS TO VOICE AND TACTILE STIMULI. PATIENT WAS VERY SLEEPY AND DID NOT OPEN HIS EYES BUT WAS ABLE TO SQUEEZE THE HANDS OF THE NURSE. ON SB WITH HR OF 53 ON TELE MONITOR. ON RA WITH OXYGEN SATURATION OF 96%. IV ACCESS ON RIGHT UPPER ARM MIDLINE, INTACT, PATENT AND FLUSHES WELL, NO S/S INFILTRATION NOTED ON THE IV SITE. CONDOM CATHETER IS INTACT, DRAINING WITH YELLOW COLORED URINE, NO HEMATURIA AND NO SEDIMENTATION NOTED. ALL SAFETY MEASURES IN PLACE, BED LOCKED AND IN LOWEST POSITION. CALL LIGHT WITHIN REACH. WILL CONTINUE TO MONITOR PATIENT THROUGHOUT SIFT.
[2022-09-03] MEDS: PANTOPRAZOLE 40 MG/PACK PACK PO SCH (07:53)
[2022-09-03 08:00] VITALS: BP 112/63
[2022-09-03] MEDS: LOSARTAN POTASSIUM 50 MG TABLET PO SCH (08:17)
[2022-09-03] MEDS: GABAPENTIN 300 MG CAPSULE PO SCH ×3 (08:18→16:19)
[2022-09-03] MEDS: HEPARIN SODIUM, PORCINE 5000 UNITS/1 ML VIAL SQ SCH (08:18)
[2022-09-03] MEDS: Z GUARD REMEDY 4 OZ OINT TP SCH (08:20)
[2022-09-03] MEDS: risperiDONE 0.25 MG TABLET PO SCH ×2 (08:20→16:20)
[2022-09-03 12:00] VITALS: BP 91/60
--- NOTE | 2022-09-03 15:13 | NUR ---
CALLED [facility] @ [phone], SPOKE WITH DIRECTOR MOTION PICTURE FRANCINE AND GAVE FULL REPORT FOR THE PATIENT
[2022-09-03 16:00] VITALS: BP 93/59
--- NOTE | 2022-09-03 16:27 | NUR ---
PATIENT WAS PICKED UP BY [facility] [id number]. PATIENT WAS ON SB ON TELE MONITOR WITH HR OF 49. ID BAND REMOVED. MIDLINE CATHETER WAS REMOVED WITH HUB INTACT. TELE MONITOR WAS TAKEN OFF THE PATIENT. PATIENT LEFT VIA GURNEY IN NO ACUTE DISTRESS
== END 2022-09-03 16:35 | DRG 201 ==
LOC: ER 13:25 → TELE1 20:23 → TELE-TD 08-29 02:25 → TELE1 09-02 07:59
PROVIDERS: ADMIT Internal Medicine; ATTEND Internal Medicine
PROC: 05H933Z Insertion of Infusion Device into Right Brachial Vein, Percutaneous Approach (ICD-10-PCS; principal; 2022-08-29)
DX: R00.1 Bradycardia, unspecified (principal); J96.91 Respiratory failure, unspecified with hypoxia; I10 Essential (primary) hypertension; Z20.822 Contact with and (suspected) exposure to COVID-19; Z86.19 Personal history of other infectious and parasitic diseases; F10.10 Alcohol abuse, uncomplicated; Y90.9 Presence of alcohol in blood, level not specified; E51.2 Wernicke's encephalopathy; F20.9 Schizophrenia, unspecified; R26.9 Unspecified abnormalities of gait and mobility; F15.91 Other stimulant use, unspecified, in remission; Z88.5 Allergy status to narcotic agent; Z79.899 Other long term (current) drug therapy
CPT/HCPCS: 36410; 36415; 36600; 71045-TC; 80048-TC; 80076-TC; 82803-TC; 83605-TC; 83880; 84439-TC; 84443-TC; 84484-TC; 85025-TC; 85378-TC; 87081-TC; 92526; 92611-TC; 93307-TC; 94799-TC; 97110-TC; 97112-TC; 97530-TC; 97535-TC; A4349; C9803; G0378; J0692; J1100; J1265; J1644; J2060; J7040; J7050; J7060; Q9967

== ENCOUNTER 2022-09-03 19:06 | Emergency (ER) | payer OTHER ==
[~2022-09-03] VITALS: Ht 172.7 cm; Wt 62.1 kg
[~2022-09-03 19:06] MED LIST changes: -DOXY100C2 PO; -FOLI0.4T6 PO; -PROP10TA10 PO; +RISP0.2515 PO; -TRAZ-257 PO
--- NOTE | 2022-09-03 20:10 | NUR ---
[facility] ETA 45 MINUTES.
--- NOTE | 2022-09-03 20:30 | NUR ---
CONDOM CATHETER NOTED. REMOVED ORDERED.
--- NOTE | 2022-09-03 21:23 | NUR ---
[facility] AT BEDSIDE FOR TRANSPORT BACK TO [facility].
[2022-09-03 22:09] VITALS: BP 110/60
== END 2022-09-03 22:10 | disposition home or self-care (01) ==
LOC: ER 19:07
DX: G93.49 Other encephalopathy (principal); E51.2 Wernicke's encephalopathy; I10 Essential (primary) hypertension; F20.9 Schizophrenia, unspecified; Z88.5 Allergy status to narcotic agent; Z86.19 Personal history of other infectious and parasitic diseases; Z46.6 Encounter for fitting and adjustment of urinary device